=== PATIENT | male | born 1950 | race Caucasian/White ===

== ENCOUNTER 2023-12-24 12:53 | Inpatient (IN) | payer MEDICARE, OTHER, SELFPAY ==
[2023-12-24] VITALS (10 sets, daily range): BP systolic 145–176; BP diastolic 79–96; PULSE 67–97; O2SAT 97; BMI 40.7; BMI 46.6
[2023-12-24 11:12] LABS: % Basophils 0.7 % (0-2); % Eosinophils 5.2 % (0-6); % Immature Granulocytes 0.2 % (0-0.5); % Lymphocytes 28.6 % (20.5-51.1); % Monocytes 8.1 % (1.7-9.3); % Neutrophils 57.2 % (42.2-75.2); Absolute Basophils 0.1 10^3/uL (0-0.2); Absolute Eosinophils 0.5 10^3/uL (0-0.7); Absolute Lymphocytes 2.5 10^3/uL (1.2-3.4); Absolute Monocytes 0.7 10^3/uL (0.1-0.6); Absolute Neutrophils 5.1 10^3/uL (1.4-6.5); Hematocrit 43.2 % (39.0-52.0); Mean Corp Hgb Conc. 34.7 g/dL (33.0-37.0); Mean Corpuscular Hgb 31.4 pg (27.0-31.0); Mean Corpuscular Volume 90.4 fL (80.0-94.0); Mean Platelet Volume 10.6 fL (7.4-10.4); Nucleated Red Blood Cells % 0 % (-); Platelet Count 173 10^3/uL (130-400); Red Blood Cell Count 4.78 10^6/uL (4.70-6.10); Red Cell Dist. Width 13.1 % (11.5-14.5); White Blood Cell Count 8.9 10^3/uL (4.8-10.8)
[2023-12-24 11:15] LABS: Glucose - Point of Care 104 mg/dl (70-99)
[2023-12-24 11:16] LABS: APTT 26.2 Sec (23.4-35.0); INR 0.96; PT 12.6 Sec (11.4-14.6)
[2023-12-24 11:18] LABS: ALT (SGPT) 23 U/L (0-50); AST (SGOT) 27 U/L (17-59); Albumin 4.7 g/dl (3.5-5.0); Alkaline Phosphatase 92 U/L (38-126); Blood Urea Nitrogen 31 mg/dl (9-20); Calcium 9.8 mg/dl (8.4-10.2); Chloride 102 mmol/L (98-107); Estimated Creatinine Clearance 55 ml/min; Glucose 114 mg/dl (70-99); Potassium 4.3 mmol/L (3.5-5.1); Sodium 139 mmol/L (135-145); Total Bilirubin 0.5 mg/dl (0.2-1.3); Total Protein 7.4 g/dl (6.3-8.2)
--- NOTE | 2023-12-24 11:22 | ED.CVA ---
History of Present Illness
General
Chief Complaint: CVA/TIA Symptoms
Source: patient
Exam Limitations: none
Time Seen by Provider: 12/24/23 10:52
Nursing documentation reviewed up to this point in time: agreed with
Onset of Stroke Symptoms
Onset of symptoms known: Yes
Date of onset of symptoms: 12/24/23
History of Present Illness
History of Present Illness:
Patient presents to ED secondary to sudden onset of left arm weakness, difficulty ambulating, along with left upper lip weakness, noted when ambulating to the bathroom after he woke up this morning around 6:30 AM. Patient went to sleep last night
without any symptoms. Denies headache. Denies neck pain. Denies blurred vision. Denies dizziness. Denies chest pain or palpitations. Denies previous history of similar symptoms. Patient does not take any blood thinning medications currently.
Review of Systems
Review of Systems
Allergies reviewed?: Yes
All Other Systems: ROS reviewed and negative except as documented in HPI and ROS
Constitutional: Reports no symptoms
Respiratory: Reports no symptoms
Cardiac: Reports no symptoms
ABD/GI: Reports no symptoms
Musculoskeletal: Reports no symptoms
Skin: Reports no symptoms
Neurological: Reports weakness and other (ataxia)
Phy Exam
Physical Exam
Physical Exam:
Physical Exam
General: no apparent distress, not acutely ill. afebrile.
Head: nc/at. eomi
Neck: supple. no meningeal signs.
Heart: s1/s2 regular rate and rhythm, no murmur. equal radial pulses.
Lungs: no acute respiratory distress. clear bilaterally
Abdomen: normal bowel sounds. not tender
Neuro: alert and oriented x 3. LUE 4/5 motor. LLE decreased sensation. normal speech.
Skin: no rash
Psychiatric: well kept. interactive and cooperative
Extremities: no edema. no calf tenderness.
Course
Orders/Labs/Results
Orders:
Orders
12/24/23 10:47
CT Head W/o Cont STROKE ALERT Stat
Comment:
Reason For Exam: left sided weakness
12/24/23 10:50
Electrocardiogram (*1) Urgent
Reason for Study: Other
Other Reason for Exam: Possible Stroke
Bedside Glucose- Treatment ONCE
Cardiac Monitoring- Treatment ONCE
IV Insert/Care/Rem.- Treatment PRN
Vital Signs As Directed
Frequency: Other
Weight As Directed
Frequency: Once
Comment: ZERO STRETCHER SCALE FOR ACCURATE WEIGHT
O2 Therapy [RESP] Urgent
Titrate/Wean O2 to maintain O2 sat greater than (%): 93
Special Instructions: MAINTAIN CONTINUOUS O2 SATS > OR = 93%
12/24/23 10:51
EKG- Treatment ONCE
Complete Blood Count/With Diff Urgent
Comprehensive Metabolic Panel Urgent
PTT Urgent
Prothrombin Time Urgent
Troponin I Urgent
12/24/23 10:57
CT Head/Neck Ang STROKE ALERT Urgent
Comment:
Reason For Exam: Left-sided weakness
12/24/23 11:20
Aspirin 600 mg PO NOW STA
12/24/23 11:21
Clopidogrel Bisulfate [Plavix] 300 mg PO NOW STA
12/24/23 12:14
Admit/Transfer Patient As Directed
Co-Sign Provider:
Level of Care: Inpatient admission
Assign to:: Telemetry
Physician / Group: Bridger Williamson
Diagnosis: Acute CVA
Reason for Telemetry: CVA/TIA
Date to Stop Telemetry: 12/27/23
Time to Stop Telemetry: 11:00
Reason for Hospitalization: Acute CVA
Expected length of stay greater than two midnights?: Yes
ELOS- Estimated Length of Stay in days: 2
I certify the patient meets the requirements for IP care: Yes
12/24/23 12:15
PRN Pain Medication Management As Directed
May give lesser potent ordered pain med per pt: Yes
preference::
Protocol:: Medication orders for pain may be administered in a
manner that supports deferring to patient preference
when the pt is:
- Requesting an ordered lesser potent pain medication.
Least to most potent pain medications are defined
as: acetaminophen < NSAID < tramadol < opioids
(morphine, oxycodone, hydromorphone).
- Requesting a lesser dose of the same medication IF
ORDERED.
- Requesting a less intrusive route of administration
if both routes are prescribed by the provider (PO <
IV).
12/24/23 12:16
Code Status As Directed
Resuscitation Status: Full Code
12/24/23 12:58
Acetaminophen [Tylenol] 650 mg PO Q4HPRN PRN
12/24/23 14:03
Acetaminophen [Tylenol/Feverall] 650 mg RECTAL Q4HPRN PRN
12/24/23 14:03
Echo 2D MMode Color/Doppler Routine
Reason for Study: stroke/TIA
Case Management Consult ONCE
Case Management Consult: Discharge Planning
Comment: stroke/tia
NEUROLOGY CONSULT Urgent
Consulting Provider: Ced Roche
Was physician already notified: Yes
Reason for consult: stroke
MR Brain Without Contrast Routine
Comment:
Reason For Exam: stroke/TIA
Recent pill cam endoscopy?: No
Activity As Directed
Activity Level: With Assistance
NIH Stroke Scale As Directed
Directions: Per protocol
Comment: every shift and with any change in condition or mental status
Neurological Checks As Directed
Frequency: q4h
Additional Instructions:: q4h x 24h upon admission to the floor, then qshift & with any change in condition
and mental status
Patient Education As Directed
Type: Stroke education packet
Comment: provide to patient and family
Pneumatic Compression Sleeves As Directed
Type: Knee high
Swallow Screening CVA/TIA ONLY As Directed
Comment: NPO until swallowing screening completed
If patient FAILS swallow screening:: NPO, Speech Therapy consult, Aspiration Precautions
If patient PASSES swallow screening, diet:: Cholesterol Lowering
Vital Signs As Directed
Frequency: Per unit guidelines
Cpap [RESP] Routine
Patient to use own unit?: No
Set Pressure (cm H2O): 12
Ot Eval And Treat Routine
Pt Eval And Treat Routine
Activity Level: With Assistance
Speech Therapy Eval & Treat Routine
DX Deep Vein Thrombosis Video Routine
12/24/23 18:00
Tamsulosin [Flomax] 0.4 mg PO QPM
12/24/23 20:00
Pantoprazole [Protonix] 40 mg PO BID
12/24/23 22:00
Donepezil [Aricept] 5 mg PO HS
Gabapentin [Neurontin] 600 mg PO HS
12/25/23 06:00
Basic Metabolic Panel IN AM
Cardiovascular Evaluation IN AM
Complete Blood Count/No Diff IN AM
12/25/23 08:00
Aspirin Chewable [Low Strength Aspirin] 81 mg PO DAILY
Clopidogrel Bisulfate [Plavix] 75 mg PO DAILY
Dicyclomine [Bentyl] 20 mg PO DAILY
Duloxetine Delayed Release [Cymbalta Delayed Release] 30 mg PO DAILY
Rosuvastatin Calcium [Crestor] 20 mg PO DAILY
12/27/23 11:00
DC Protocol for Telemetry ONCE
12/28/23 08:00
Ergocalciferol [Drisdol (Vitamin D2)] 50,000 units PO SA@0800
Abnormal Lab Results
12/24/23 12/24/23
10:51 11:14
MCH 31.4 H pg
(27.0-31.0)
MPV 10.6 H fL
(7.4-10.4)
Absolute Monos (auto) 0.7 H 10^3/uL
(0.1-0.6)
BUN 31 H mg/dl
(9-20)
Creatinine 1.4 H mg/dL
(0.7-1.3)
Glucose 114 H mg/dl
(70-99)
POC Glucose 104 H mg/dl
(70-99)
12/24/23 10:51
12/24/23 10:51
Vital Signs
Initial and Last Documented VS:
Initial Vital Signs
Temp Pulse Resp BP Pulse Ox
98.0 F 66 20 159/85 98
12/24/23 10:35 12/24/23 10:35 12/24/23 10:35 12/24/23 10:35 12/24/23 10:35
Last Documented Vital Signs
Temp Pulse Resp BP Pulse Ox
97.4 F 63 16 172/96 94
12/24/23 14:25 12/24/23 14:25 12/24/23 14:25 12/24/23 14:25 12/24/23 14:25
MDM/Problems Addressed
MDM/Problems Addressed:
CT head: NAD. Patient is not a candidate for TNK treatment, as onset of symptoms unknown along with low NIH score. Patient evaluated by Dr. Roche, neurology, upon arrival, who recommends admission to the hospital for further evaluation treatment,
and starting aspirin and Plavix.
*Critical Care Note
Total Time (30-74mins, 75-104mins- exclusive of procedures): Not Applicable
ED Attending Note
-
Portions of this chart may have been created with voice recognition software.� Occasional wrong word or��sound alike� substitutions may have occurred due to the inherent limitations of voice recognition software.
Discharge Plan
Departure
Patient Disposition: Admit
Date of Disposition: 12/24/23
Time of Disposition: 11:28
Admit to: Telemetry
Presentation/result/management discussed w/ accepting MD/DO: Hospitalist
Discharge Problem:
Acute CVA (cerebrovascular accident)
Interventions
Interventions:
*Risk Screen - Suicide Last Done: 12/24/23 10:59
*General Assessment Last Done: 12/24/23 10:57
*Neglect/Abuse Screening Last Done: 12/24/23 10:59
ED- Fall Risk Assessment Last Done: 12/24/23 14:06
*ED COVID-19 Vaccine History Last Done: 12/24/23 10:57
*Nursing Disposition Last Done: 12/24/23 14:06
ED- Pulmonary Assessment Last Done: 12/24/23 11:00
ED- Neurological Assessment Last Done: 12/24/23 11:10
ED- Cardiac Assessment Last Done: 12/24/23 11:00
ED Swallowing Screen Last Done: 12/24/23 11:10
Discharge Date and Time
Discharge Date/Time: 12/24/23 14:00
[2023-12-24 11:29] LABS: Troponin I < 0.012 ng/ml
[2023-12-24] MEDS: PLAVIX 300 MG PO (11:31)
[2023-12-24] MEDS: ASPIRIN 600 MG PO (11:31)
[2023-12-24 11:32] LABS: Carbon Dioxide 27 mmol/L (22-30)
--- NOTE | 2023-12-24 12:19 | HPS.HSE ---
Family Physician
-
Family Physician: Dallas Valencia MD
Chief Complaint
-
Left sided weakness
History of Present Illness
Patient is a 73-year-old male with past medical history of depression, essential hypertension, hyperlipidemia, GERD, neuropathy, MITCHELL on CPAP, obesity, h/o TIA came to ER with new onset of left upper and lower extremity weakness. Patient woke up
with new onset of left upper and lower extremity weakness and was having difficulty ambulating to bathroom. Patient was sitting on a stool at 1 point and fell due to unable to keep balance, no LOC/dizziness/no head injury. Patient reported having
difficulty in swallowing as well. No change in speech.
Patient had episode of TIA years back and workup was negative at that point. Patient have some reflux/Luo's esophagus and as part of differential patient underwent cardiac stress test testing which was negative as well earlier last month.
Denies of any other issues of shortness of breath/cough/fever/palpitation/chest pain/abdomen pain/nausea/vomiting/diarrhea/dysuria.
Medical History
Past Medical History
Past Medical History: Reports Other
Additional Past Medical History:
depression, essential hypertension, hyperlipidemia, GERD, neuropathy, MITCHELL on CPAP, obesity, h/o TIA
Past Surgical History: Reports Other
Social History
Tobacco: Non-smoker
Alcohol: Occasional
Drug: None
Personal:
Living: With Family
Family History
Family History: Not pertinent
Allergies / Home Medications
Allergies reflects when Allergies were last updated in [facility].
Home Medications with original date entered in [facility]
Allergy/Medication List:
Allergies
Allergy/AdvReac Type Severity Reaction Status Date / Time
dogs Allergy Itching Uncoded 09/25/22 11:39
Home Medications
alfuzosin 10 mg tablet,extended release 24 hr 10 mg PO QPM 12/24/23
atenolol 25 mg tablet 25 mg PO DAILY 12/24/23
dicyclomine 20 mg tablet 20 mg PO DAILY 12/24/23
donepezil 5 mg tablet 5 mg PO HS 12/24/23
duloxetine 30 mg capsule,delayed release (Cymbalta) 30 mg PO DAILY 12/24/23
ergocalciferol (vitamin D2) 1,250 mcg (50,000 unit) capsule 1,250 mcg PO SA 12/24/23
gabapentin 600 mg tablet 600 mg PO HS 12/24/23
losartan 25 mg tablet 50 mg PO DAILY 12/24/23
omeprazole 40 mg capsule,delayed release 40 mg PO BID 12/24/23
rosuvastatin 20 mg tablet 20 mg PO DAILY 12/24/23
Review of Systems
-
A 12 point ROS was completed and negative except as noted: Yes
Physical Exam
Vital Signs
Vital Signs
Temp Pulse Resp BP Pulse Ox
98.0 F 59 16 149/79 97
12/24/23 10:35 12/24/23 12:00 12/24/23 12:03 12/24/23 12:00 12/24/23 12:00
Physical Exam
General: No Apparent Distress
HEENT: Atraumatic; No Oxygen
Respiratory: Clear
Cardiac: S1/S2 and Regular Rhythm; No Murmur or Rub
GI: Soft, Non Tender, Non Distended and Normal Bowel Sounds; No Organomegaly
Rectal: Deferred by Provider
Musculoskeletal: No Clubbing, No Cyanosis and No Edema
Skin: No Rash
Neuro: Awake, Alert and Oriented
Laboratory Results
-
12/24/23 10:51
12/24/23 10:51
Laboratory Results
PT 12.6 Sec (11.4-14.6) 12/24/23 10:51
INR 0.96 12/24/23 10:51
APTT 26.2 Sec (23.4-35.0) 08/20/24 10:51
Total Bilirubin 0.5 mg/dl (0.2-1.3) 12/24/23 10:51
AST 27 U/L (17-59) 12/24/23 10:51
ALT 23 U/L (0-50) 12/24/23 10:51
Alkaline Phosphatase 92 U/L (38-126) 12/24/23 10:51
Troponin I < 0.012 ng/ml 12/24/23 10:51
Data Reviewed
-
CT Scan: Image Personally Visualized and interpreted, Discussed with Patient and Discussed with Family
Lab Data: Labs Reviewed by me, Discussed with Patient and Discussed with Family
Impression/Plan
-
CT head
There are no acute intracranial abnormalities.
There is moderate diffuse cortical atrophy with moderate nonspecific white matter changes as described above.
CTA head/neck
There is no evidence of intracranial branch occlusion.
There is a small amount of partially calcific atherosclerotic plaque at the left carotid bifurcation without significant stenosis.

1. Acute CVA
Left sided weakness
-Patient woke up with left-sided upper and lower extremity weakness, dysphagia and some facial weakness
-CT head without any acute abnormality
-CTA head and neck did not show any severe plaque stenosis/clot
-Neurology evaluated patient in ER and patient got loaded with clopidogrel 300 mg and aspirin 600 mg dose
-Follow-up MRI brain ordered
-Check lipid profile/A1c
-Permissive hypertension with IV hydralazine for systolic blood pressure greater than 220/120
-PT OT and speech evaluation
-Admit to telemetry for monitoring
2. Essential HTN
-Permissive hypertension till tomorrow morning 6 AM
-Resume home dose of losartan/atenolol from tomorrow
-As needed hydralazine for systolic blood pressure above 220/120
3. MITCHELL
- night time CPAP ordered
Hyperlipidemia
GERD
neuropathy
obesity
DVT PPX - scd
Full code
Total time spent : 78 mins
I personally saw and examined the patient.
I have reviewed all diagnostic interpretations and treatment plans as written.
Time includes patient management by me, time spent at the patients bedside, time to review lab and imaging results, discussing patient care, documentation in the medical record, and time spent with the family or caregiver and discussing care plan
with RN/Consultants.
--- NOTE | 2023-12-24 12:51 | CON.NEURO4 ---
Documented by User: Maisha Liang NP 12/24/23 13:33
Consultation - Neurology 4
-
CONSULTING PHYSICIAN: Ced Roche MD
REFERRING PHYSICIAN: ER/Dr. Alvarado
DICTATED BY: KENJI Corbin
DATE/TIME OF REQUEST: 12/24/23
DATE/TIME OF CONSULTATION: 12/24/23
Reason for Consultation: Stroke Alert
History of Present Illness:
This is a 73-year-old right-handed male who has presented to the hospital with report of left-sided weakness and gait ataxia. Patient's spouse reports that he went to bed last night (12/23/23) at his baseline. This morning (12/24/23) around 8701-0596
he woke up and on ambulation to the bathroom noted that his gait was unsteady. He made it to the bathroom but then called to his for help ambulating back to back. She noted that he was veering to the left, knocking into cramer, and his left side
seemed weak. They called his PCP when the office opened and were instructed to call 911. On arrival in the ER, CT head and CTA head/neck were obtained and are negative for any acute abnormalities. NIHSS is 3 for LUE drift, slight LLE drift, and
decreased left-sided sensation. He is not a candidate for TNK/IAT due to being outside of the time window and no LVO. Patient denies any headache, dizziness, vision changes, speech/swallow difficulty, nausea, numbness, chest pain, palpitations, and
shortness of breath.
His spouse reports that in 2007 he had a 'silent stroke' with no associated symptoms. He was taking an aspirin 81mg daily for a few years but she reports it has been years since he was on that. He had an MRI brain completed in the past 1-2 years
due to cognitive changes and it reportedly demonstrated an old stroke but I do not have the report available to confirm this. She denies any history of left-sided weakness or events similar to this in the past. He is followed by Neurology Dr. Almaraz
at [place] for dementia and headaches. Per his , he has a one year history of significant short term memory issues. He was diagnosed with vascular dementia by Dr. Almaraz. He has been taking donepezil 5mg daily for several months and tolerates this
well.
Past Medical History: CVA 2008, vascular dementia, HTN, HLD, neuropathy, MITCHELL (cpap), headaches
Surgical History: Hernia repair, hydrocele repair, L TKR
Family History: Father- brain tumor.
Social History: Denies tobacco, alcohol, and illicit drug use.
Allergies: Dogs.
Home Medications: See below.
Review of Symptoms:
Patient denies any fever, headache, chest pain, shortness of breath, GI or symptoms.
�Per the HPI.�All systems are reviewed negative except above.
Physical Exam:
The patient is afebrile, abdomen is nondistended, breathing is unlabored, skin is warm and dry, no edema.
NIH Stroke Scale:
I performed the NIH stroke scale on the patient on 12/24/23 at 1100. The patient scored 3 points on the NIH stroke scale assessment, which were assigned as follows: See below.
Neurologic Examination:
The patient is awake, alert and oriented to person, place, and month (not year-baseline). He is able to follow commands and answer questions appropriately. There is no aphasia or dysarthria. On cranial nerve assessment, pupils are 3 mm bilateral,
round and reactive to light and accommodation. Visual gonzalez are full. Extraocular movements are intact. Facial sensations are intact and bilaterally symmetrical, there is no facial asymmetry. Hearing is intact bilaterally to normal conversation
volume. Tongue palate and uvula are midline. Sternocleidomastoid strengths are full bilaterally. Motor strengths are 4/5 left upper, 5/5 right upper, 5/5 right lower, and 4+/5 left lower extremities on medical research [place] scale. There is drift
in his LUE, slight drift in his LLE. No involuntary movement noted. Sensation of touch is mildly reduced on the left side. Babinski is absent bilaterally. There was no extinction noted on double simultaneous stimulation. Coordination is intact by
finger to nose bilaterally.
Lab Results: See below.
Neuro Imaging:
1. CT Head 12/24/23: There are no acute intracranial abnormalities. There is moderate diffuse cortical atrophy with moderate nonspecific white matter changes as described above.
2. CTA Head/Neck 12/24/23: There is no evidence of intracranial branch occlusion. There is a small amount of partially calcific atherosclerotic plaque at the left carotid bifurcation without significant stenosis.
Differentials for the patient's presentation include:
1. Small acute right hemisphere ischemic stroke likely producing patient's left-sided weakness and gait ataxia. Etiology likely small vessel disease. CTA negative for LVO.
2. Small old ischemic stroke, not on antiplatelet therapy.
3. Vascular dementia.
Patient has the following risk factors for their symptoms: HTN, HLD, hx stroke, MITCHELL
IV Tenecteplase/IAT candidacy: He is not a candidate for TNK/IAT due to being outside of the time window and no LVO.
Recommendations:
-Provide aspirin 600mg and Plavix 300mg x1 now. Continue DAPT with aspirin 81mg and Plavix 75mg daily for 21 days. After 21 days, discontinue Plavix and continue aspirin 81mg daily only, indefinitely.
-SBP goal <[address] Roche.
-MRI brain noncontrast pending. Lorazepam on-call for MRI due to severe claustrophobia.
-TTE pending.
-LDL goal <70. Lipid panel is pending. Continue home rosuvastatin 20mg daily.
-Goal normoglycemia, hbA1c is pending.
-Continue home donepezil.
-NIHSS and neurological checks per unit guidelines.
-Provide patient/family with a stroke education packet.
-PT/OT/ST evaluations.
-DVT prophylaxis.
-Will follow pending results.
Discussed patient care with: Dr. Roche, the patient, patient's spouse
Vital Signs and Labs
-
Vital Signs and Labs:
Vital Signs
Temp Pulse Resp BP Pulse Ox
98.0 F 59 16 149/79 97
12/24/23 10:35 12/24/23 12:00 12/24/23 13:06 12/24/23 12:00 12/24/23 12:00
Lab Results
12/24/23 10:51
12/24/23 10:51
PT 12.6 Sec (11.4-14.6) 12/24/23 10:51
INR 0.96 12/24/23 10:51
APTT 26.2 Sec (23.4-35.0) 12/24/23 10:51
Sodium 139 mmol/L (135-145) 12/24/23 10:51
Potassium 4.3 mmol/L (3.5-5.1) 12/24/23 10:51
BUN 31 mg/dl (9-20) H 12/24/23 10:51
Glucose 114 mg/dl (70-99) H 12/24/23 10:51
Calcium 9.8 mg/dl (8.4-10.2) 12/24/23 10:51
Medications
-
Active Medications
Generic Name Dose Route Start Last Admin
Trade Name Freq PRN Reason Stop Dose Admin
Acetaminophen 650 mg 12/24/23 12:58 12/24/23 13:02
Acetaminophen 325 Mg Tablet PO 01/21/24 12:57 650 mg
Q4HPRN PRN Administration
WADE, mild pain, or temp >100.4F
Home Medications
�Medication �Instructions �Recorded
alfuzosin 10 mg tablet,extended 10 mg PO QPM 12/24/23
release 24 hr
atenolol 25 mg tablet 25 mg PO DAILY 12/24/23
dicyclomine 20 mg tablet 20 mg PO DAILY 12/24/23
donepezil 5 mg tablet 5 mg PO HS 12/24/23
duloxetine 30 mg capsule,delayed 30 mg PO DAILY 12/24/23
release (Cymbalta)
ergocalciferol (vitamin D2) 1,250 1,250 mcg PO SA 12/24/23
mcg (50,000 unit) capsule
gabapentin 600 mg tablet 600 mg PO HS 12/24/23
losartan 25 mg tablet 50 mg PO DAILY 12/24/23
omeprazole 40 mg capsule,delayed 40 mg PO BID 12/24/23
release
rosuvastatin 20 mg tablet 20 mg PO DAILY 12/24/23
NIH Stroke Score
Subsequent NIH Scale
Date of Subsequent NIH Scale: 12/24/23
Time of Subsequent NIH Scale: 11:00
NIH Stroke Score
Level of Consciousness: 0 - Alert
LOC Questions: 0-Answers both correctly
LOC Commands: 0-Performs both correctly
Best Horizontal Gaze: 0-Normal
Visual Gonzalez: 0=Normal, no visual loss
Facial Palsy: 0=Normal, symmetrical
Motor - Right Arm: 0=No drift 10 seconds
Motor - Left Arm: 1=Drift < 10 seconds
Motor - Right Le-No drift 5 seconds
Motor - Left Le-Drift < 5 seconds
Limb Ataxia: 0-Absent
Sensation: 1-Mild loss
Best Language: 0-No aphasia
Dysarthria: 0-Normal
Extinction and Inattention: 0-No abnormality
Total Score:: 3
Modified [place] (mRS) Score
Modified [place] Scale (mRS): Moderately severe disability. Unable to attend to bodily needs/walk.
Score: 4
Alteplase Contraindication
Inclusion and Exclusion criteria reviewed: Yes
Reasons for NON-Tx with Thrombolytics ABSOLUTE Exclusions: Greater than 4.5 hrs from onset of sxs
IAT Contraindications: Imaging doesn't show large vessel occlusion as cause of stroke

Documented by User: Ced Roche MD 12/25/23 11:18
Consultation - Neurology 4
-
CONSULTING PHYSICIAN: Ced Roche MD
REFERRING PHYSICIAN: ER/Dr. Alvarado
DICTATED BY: KENJI Corbin
DATE/TIME OF REQUEST: 12/24/23
DATE/TIME OF CONSULTATION: 12/24/23
Reason for Consultation: Stroke Alert
History of Present Illness:
This is a 73-year-old right-handed male who has presented to the hospital with report of left-sided weakness and gait ataxia. Patient's spouse reports that he went to bed last night (12/23/23) at his baseline. This morning (12/24/23) around 8461-3323
he woke up and on ambulation to the bathroom noted that his gait was unsteady. He made it to the bathroom but then called to his for help ambulating back to back. She noted that he was veering to the left, knocking into cramer, and his left side
seemed weak. They called his PCP when the office opened and were instructed to call 911. On arrival in the ER, CT head and CTA head/neck were obtained and are negative for any acute abnormalities. NIHSS is 3 for LUE drift, slight LLE drift, and
decreased left-sided sensation. He is not a candidate for TNK/IAT due to being outside of the time window and no LVO. Patient denies any headache, dizziness, vision changes, speech/swallow difficulty, nausea, numbness, chest pain, palpitations, and
shortness of breath.
His spouse reports that in 2007 he had a 'silent stroke' with no associated symptoms. He was taking an aspirin 81mg daily for a few years but she reports it has been years since he was on that. He had an MRI brain completed in the past 1-2 years
due to cognitive changes and it reportedly demonstrated an old stroke but I do not have the report available to confirm this. She denies any history of left-sided weakness or events similar to this in the past. He is followed by Neurology Dr. Almaraz
at [place] for dementia and headaches. Per his , he has a one year history of significant short term memory issues. He was diagnosed with vascular dementia by Dr. Almaraz. He has been taking donepezil 5mg daily for several months and tolerates this
well.
Past Medical History: CVA 2008, vascular dementia, HTN, HLD, neuropathy, MITCHELL (cpap), headaches
Surgical History: Hernia repair, hydrocele repair, L TKR
Family History: Father- brain tumor.
Social History: Denies tobacco, alcohol, and illicit drug use.
Allergies: Dogs.
Home Medications: See below.
Review of Symptoms:
Patient denies any fever, headache, chest pain, shortness of breath, GI or symptoms.
�Per the HPI.�All systems are reviewed negative except above.
Physical Exam:
The patient is afebrile, abdomen is nondistended, breathing is unlabored, skin is warm and dry, no edema.
NIH Stroke Scale:
I performed the NIH stroke scale on the patient on 12/24/23 at 1100. The patient scored 3-4 points on the NIH stroke scale assessment.
Neurologic Examination:
The patient is awake, alert and oriented to person, place, and month (not year-baseline). He is able to follow commands and answer questions appropriately. There is no aphasia or dysarthria. On cranial nerve assessment, pupils are 3 mm bilateral,
round and reactive to light and accommodation. Visual gonzalez are full. Extraocular movements are intact. Facial sensations are intact and bilaterally symmetrical,
here is no facial asymmetry. Hearing is intact bilaterally to normal conversation volume. Tongue palate and uvula are midline. Sternocleidomastoid strengths are full bilaterally. Motor strengths are 4/5 left upper, 5/5 right upper, 5/5 right lower,
and 4+/5 left lower extremities on medical research [place] scale. There is drift in his LUE, slight drift in his LLE. No involuntary movement noted. Sensations were diminished/reduced on the LEFT side.
Babinski was present LEFT. There was no extinction noted on double simultaneous stimulation. Coordination is intact by finger to nose bilaterally. Patient needed assistance to sit stand. He was unable to walk
Lab Results: See below.
Neuro Imaging:
1. CT Head 12/24/23: There are no acute intracranial abnormalities. There is moderate diffuse cortical atrophy with moderate nonspecific white matter changes as described above.
2. CTA Head/Neck 12/24/23: There is no evidence of intracranial branch occlusion. There is a small amount of partially calcific atherosclerotic plaque at the left carotid bifurcation without significant stenosis.
Differentials for the patient's presentation include:
1. Small acute right hemisphere ischemic stroke likely producing patient's left-sided weakness and gait ataxia. Etiology likely small vessel disease. CTA negative for LVO.
2. Small old ischemic stroke, not on antiplatelet therapy.
3. Vascular dementia.
Patient has the following risk factors for their symptoms: HTN, HLD, hx stroke, MITCHELL
IV Tenecteplase/IAT candidacy: He is not a candidate for TNK/IAT due to waking up with left-sided weakness and arrival to emergency room 3-4 hours after waking up:: outside of the time window and no LVO.
Recommendations:
-Provide aspirin 600mg and Plavix 300mg x1 now. Continue DAPT with aspirin 81mg and Plavix 75mg daily for 21 days. After 21 days, discontinue Plavix and continue aspirin 81mg daily only, indefinitely.
-SBP goal <[address] Roche.
-MRI brain noncontrast pending. Lorazepam on-call for MRI due to severe claustrophobia.
-TTE pending.
-LDL goal <70. Lipid panel is pending. Continue home rosuvastatin 20mg daily.
-Goal normoglycemia, hbA1c is pending.
-Continue home donepezil.
-NIHSS and neurological checks per unit guidelines.
-Provide patient/family with a stroke education packet.
-PT/OT/ST evaluations.
-DVT prophylaxis.
-Will follow pending results.
Discussed patient care with: Dr. Roche, the patient, patient's spouse
Attending note:
Patient was seen and examined in the emergency room on arrival. Agree with history exam assessment and plan. Discussed case with patient's and emergency room physician
Assessment:
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
NIH Stroke Score
NIH Stroke Score
Total Score:: 3
Modified [place] (mRS) Score
Score: 4
[2023-12-24] MEDS: TYLENOL 650 MG PO ×2 (13:02→17:58)
--- NOTE | 2023-12-24 15:09 | PTCARENOTE ---
Received pt from ER via stretcher, accompanied by ER staff. Pt AAO x3, sl forgetful. PERES; has LUE/LLE weakness; denies loss of sensation. NIHSS 3 Able to transfer to bed with assist x2/walker; unsteady w/OOb activity. fall prec initiated. VSS.
Placed on telemetry;junctional rhythm. On room air- pulse ox 94%, no c/o SOB. Abd obese, soft, passed swallow eval, to start chol lowering diet. pt DTV; urinal at bedside. oriented to [facility], currently off unit for ECHO. Will continue to
monitor.
[2023-12-24] MEDS: PROTONIX 40 MG PO (20:04)
[2023-12-24] MEDS: ARICEPT 5 MG PO (21:01)
[2023-12-24] MEDS: NEURONTIN 600 MG PO (21:01)
[2023-12-24] MEDS: XANAX PO (23:22)
--- NOTE | 2023-12-24 23:24 | PTCARENOTE ---
Pt severely agitated, yelling at staff about being 'tied to so many wires' - i.e. CPAP machine, tele monitor, bed alarm. Patient took tele and CPAP, educated patient on importance of wearing both. Patient back on tele monitor, however refused to put
the CPAP back on due to the beeping. Placed pt on 4L of O2. Respiratory aware. RN INFUSION aware.
[2023-12-25] VITALS (8 sets, daily range): BP systolic 133–165; BP diastolic 64–96; PULSE 73
--- NOTE | 2023-12-25 03:30 | DOWNTIME ---
There was a [employer] Downtime on 12/25/2023 from 0100 to 12/25/2023 at 0252. Downtime documentation of patient's care, including medication administrations, has been reconciled in the electronic record per guidelines. Refer to the
patient's paper chart under the miscellaneous tab to see printed paper medication records and downtime forms.
[2023-12-25] MEDS: XANAX 1 MG PO (07:36)
--- NOTE | 2023-12-25 10:22 | PTOTSP ---
Speech Therapy Assessment
Swallowing: Oral/pharyngeal swallow deemed within functional limits without overt signs of aspiration.
Speech/Language: No gross dysarthria. Word finding difficulty and occasional paraphasic errors noted in conversation and during confrontation tasks but overall expressive and receptive language skills are within functional limits.
Signs to suggest some cognitive and memory deficits.
Recommend
1. Continue with current diet of regular solids and thin liquids.
2. Comprehensive language and cognitive assessment in next level of care. Will attempt cognitive screening while in acute care as able.
[2023-12-25] MEDS: LOW STRENGTH ASPIRIN 81 MG PO (10:24)
[2023-12-25] MEDS: CYMBALTA DELAYED RELEASE 30 MG PO (10:24)
[2023-12-25] MEDS: PLAVIX 75 MG PO (10:24)
[2023-12-25] MEDS: PROTONIX 40 MG PO ×2 (10:24→20:18)
[2023-12-25] MEDS: CRESTOR 20 MG PO (10:24)
[2023-12-25] MEDS: BENTYL 20 MG PO (10:24)
[2023-12-25 10:25] LABS: Hemoglobin 15.4 g/dL (13.0-18.0); Mean Corpuscular Hgb 31.8 pg (27.0-31.0); Mean Corpuscular Volume 90.9 fL (80.0-94.0); Mean Platelet Volume 10.6 fL (7.4-10.4); Platelet Count 181 10^3/uL (130-400); Red Blood Cell Count 4.84 10^6/uL (4.70-6.10); Red Cell Dist. Width 13.1 % (11.5-14.5); White Blood Cell Count 8.6 10^3/uL (4.8-10.8)
[2023-12-25 10:46] LABS: Blood Urea Nitrogen 26 mg/dl (9-20); Calcium 9.8 mg/dl (8.4-10.2); Carbon Dioxide 24 mmol/L (22-30); Chloride 104 mmol/L (98-107); Estimated Creatinine Clearance 69 ml/min; Glucose 115 mg/dl (70-99); HDL Cholesterol 31 mg/dl; LDL Cholesterol, Calculated 87 mg/dl; Potassium 4.1 mmol/L (3.5-5.1); Sodium 138 mmol/L (135-145); Total Cholesterol 150 mg/dl (50-199); Triglyceride 163 mg/dl (10-149); Very Low Density Lipoprotein 32 mg/dl (0-30); eGFR > 60.00
--- NOTE | 2023-12-25 11:25 | CM ---
Addendum entered by Lolis Marquez 12/25/23 12:33:
IA completed.
Lives with spouse in 2 story home.
Independent prior to admission.
Patient does not use assistive devices.
Patient does not drive.
Patient has VN in the past, not sure of agency.
PT/OT recommending acute rehab.
Patient in agreement and would like [facility].
IMM completed.
Original Note:
Patient seen bedside.
Discussed rehab with patient.
[facility]
Plan: probably [facility] tomorrow. Bed available per Josefina.
[facility]
report# [phone]
[2023-12-25] MEDS: TENORMIN 25 MG PO (12:10)
[2023-12-25] MEDS: COZAAR 50 MG PO (12:10)
--- NOTE | 2023-12-25 13:38 | CON.MD ---
Consultation - Medical
-
Referring Provider:�Dr. Bridger Williamson
Chief Complaint:�Stroke
�
History of Present Illness:�73-year-old right-handed male with PMH (as below) presented to [facility] on 12/24/2023 with left sided weakness upon waking. Had difficulty ambulating to the bathroom, fell off a stool unable to keep balance.
Initial CT/CTA of the head and neck negative for acute abnormalities. Not a candidate for TNK or thrombectomy being outside of the window. Seen by neurology and started on aspirin and Plavix for 21 days followed by aspirin lifelong.
Echocardiogram with EF 60% no cardiac source for embolus identified. 12/24 MRI of the brain with a right dent radiata acute infarction.
Spoke with hospitalist and patient. Left arm weaker today from yesterday. No bleeding noted on MRI. Patient lost taste with COVID. No worsening taste. No vision changes. Denies any swallowing or numbness/tingling concerns.
�
Past Medical History:�depression, essential hypertension, hyperlipidemia, GERD, Luo's esophagus, neuropathy, MITCHELL on CPAP, obesity, CVA 2007, vascular dementia, headaches
Procedure History:�Hernia repair, hydrocele repair, L TKR
Family History:�Father- brain tumor.
�
Social History:�
Functional Level Premorbidly:�Independent with all activities�
Functional Level Currently:�No swallowing concerns. Occasional paraphasic errors and word finding difficulty. Min assist bed mobility, min assist transfers, mod assist daily 12 feet x 2 with rolling walker. Dependent for toileting LE extremity.
�
Tobacco:�Denies�
Alcohol:�Occasional
Drug use:�Denies�
�
Lives with:�Spouse
24-hour assistance available:�Yes
Number of floors:�2
# steps to enter:�2
# steps to second floor: full flight
Potential First floor set up:�Yes
Driving:�No
Occupation:�Not walking
�
�
Allergies:�
Allergy/AdvReac Type Severity Reaction Status Date / Time
dogs Allergy Itching Uncoded 12/24/23 14:19
Review of Systems:�
Constitutional: (x) abNormal _fatigue
Eye: (x) Normal _
Ear/Nose/Throat: (x) Normal _
Respiratory: (x) Normal _
Cardiovascular: (x) Normal _
Gastrointestinal: (x) Normal _
Genitourinary: (x) Normal _
Musculoskeletal: (x) Normal _
Integumentary: (x) Normal _
Neurologic: (x) abNormal _ left arm getting weaker, worse than right arm
Psychiatric: (x) abNormal _ anxiety with left arm getting weaker, recovery
Endocrine: (x) Normal _
Hematologic/Lymphatic: (x) Normal _
Allergic/Immunologic: (x) Normal _
�
Medications:�
Active Current Visit Medication List
Category Date Time Status
Acetaminophen [Tylenol/Feverall] Med 12/24/23 14:03 Active
650 mg RECTAL Q4HPRN PRN
Acetaminophen [Tylenol] Med 12/24/23 12:58 Active
650 mg PO Q4HPRN PRN
Aspirin Chewable [Low Strength Aspirin] Med 12/25/23 08:00 Active
81 mg PO DAILY
Atenolol [Tenormin] Med 12/25/23 11:00 Active
25 mg PO DAILY
Clopidogrel Bisulfate [Plavix] Med 12/25/23 08:00 Active
75 mg PO DAILY
Dicyclomine [Bentyl] Med 12/25/23 08:00 Active
20 mg PO DAILY
Donepezil [Aricept] Med 12/24/23 22:00 Active
5 mg PO HS
Duloxetine Delayed Release [Cymbalta Delayed Release] Med 12/25/23 08:00 Active
30 mg PO DAILY
Ergocalciferol [Drisdol (Vitamin D2)] Med 12/28/23 08:00 Active
50,000 units PO SA@0800
Flush (0.9% Sodium Chloride) [Flush (Nss)] Med 12/24/23 15:00 Active
See Dose Instructions IV PER PROTOCOL
Gabapentin [Neurontin] Med 12/24/23 22:00 Active
600 mg PO HS
HydrALAZINE [Apresoline] Med 12/24/23 14:03 Active
10 mg IV Q4HPRN PRN
Losartan [Cozaar] Med 12/25/23 11:00 Active
50 mg PO DAILY
Pantoprazole [Protonix] Med 12/24/23 20:00 Active
40 mg PO BID
Rosuvastatin Calcium [Crestor] Med 12/25/23 08:00 Active
20 mg PO DAILY
�
Vitals:�
Temp Pulse Resp BP Pulse Ox
98.2 F 83 20 160/95 98
12/25/23 11:14 12/25/23 11:14 12/25/23 11:14 12/25/23 11:14 12/25/23 11:14
Height 5 ft 5 in
Actual Weight 127.063 kg
Body Mass Index (BMI) 46.6
�
Physical Exam:�
General Appearance/Observation: Well-developed, well-nourished male in no apparent distress.�
Pain/Comfort Assessment: Denies�
Mood/Affect: Appropriate, appears a little sedated (got benzo for MRI)
�
Integumentary/Operative Site:�
�� Pressure Ulcer Evaluation: absent over heels.�
�
Eyes: Conjunctiva/Lids: normal���� Pupils: pupils equal round and reactive to light and Accommodation�
Ears/Nose/Throat: oral mucosa moist,� throat clear.������������ Lips/Teeth/Gums: normal�
Neck: No muscle spasm or tenderness�
Cardiovascular: Heart: regular, no murmur�
Pulses: dorsalis pedis 2+ bilaterally�
Respiratory: Respiratory Effort/Chest Expansion: normal������� Auscultation: Clear to auscultation bilaterally�
Gastrointestinal: abdomen not tender, no distension, normal abdominal bowel sounds
Genitourinary: External catheter with clear yellow urine.
Extremities:�Edema: None�Cyanosis: None�Trophic�changes: None
�
Neurology Exam:
Orientation: Alert, Oriented to self, Time, Place�
Memory: Intact for recent medical concerns
Repetition: Intact
Comprehension: Intact
Two step command: Intact
Naming: Intact
Cranial Nerves:
�� CNII:�Pupillary light reflex: Intact����Visual Field: Intact
�� CN III, IV, : Extraocular muscles: Intact�
�� CN V:�Facial Sensation�at�Forehead: Intact,�Maxilla: Intact,�Mandible: Intact
�� CN VII:�Facial movement: left facial weakness
�� CN VIII:�Hearing: Normal
�� CN IX/X:�Speech & swallow: Dysarthria,�Position of Uvula: Midline
�� CN XI:�Shoulder shrug: decreased on left
�� CN XII:�Tongue protrusion: Midline
Sensory:
�� Light touch: Intact in bilateral upper and lower extremities, no extinction to double simultaneous stimulation.
Reflexes:
�� Biceps: 2+ right, 0 left
�� Brachioradialis: 2+ right, 0 left
�� Triceps: 2+ right, 0 left
�� Patellar: 0 bilaterally
�� Achilles: 0bilaterally
�� Babinski: Down going bilaterally
�� Clonus: None
�� Jose L: Negative bilaterally�
Cerebellar: Dysmetria/Ataxia: None�
Musculoskeletal: Motor: (Manual muscle scale 0-5)�
Muscle SA EF WE EE FF FA HF KE DF EHL PF
Right� 5 5 5 5 5 5 5 5 5 5 5
Left 1 0 1 2+ 2 1 2 5 4 4 4
�
Tone: Normal in all extremities�
Range of Motion: Passively within normal limits in all extremities�
�
Lab Results
Laboratory Data
12/25/23 09:58
12/25/23 09:58
PT 12.6 Sec (11.4-14.6) 12/24/23 10:51
INR 0.96 12/24/23 10:51
APTT 26.2 Sec (23.4-35.0) 12/24/23 10:51
Total Bilirubin 0.5 mg/dl (0.2-1.3) 12/24/23 10:51
AST 27 U/L (17-59) 12/24/23 10:51
ALT 23 U/L (0-50) 12/24/23 10:51
Alkaline Phosphatase 92 U/L (38-126) 12/24/23 10:51
Total Protein 7.4 g/dl (6.3-8.2) 12/24/23 10:51
Albumin 4.7 g/dl (3.5-5.0) 12/24/23 10:51
�
Diagnostic Results:�as per HPI�
Exams: MR Brain Without Contrast
FINDINGS:
There is a 9 mm focus of restricted effusion within the right dent radiata (series 302 image 128).
Scattered and areas of more confluent T2/FLAIR hyperintensities within the subcortical and periventricular white matter of the bilateral cerebral hemispheres which is nonspecific, however likely sequelae of mild small vessel ischemic disease. Global
parenchymal volume loss with prior right thalamic lacunar infarctions. There is blooming artifact within the bilateral thalami/posterior limbs of the internal capsule, likely prior microhemorrhage.
There is no mass or mass effect, or extra-axial fluid collection.
The ventricles are normal in size.
Flow voids of the larger intracranial vessels are present.
Paranasal sinuses and mastoid air cells are predominantly clear. There is a 1.2 cm T2 hyperintense focus of polypoid thickening within the left posterior nasal cavity which appears to extend into the left maxillary sinus.
Marrow signal pattern is within normal limits. Prior bilateral lens replacement.
IMPRESSION:
9 mm focus of restricted diffusion within the right dent radiata consistent with acute infarction.
Mild global parenchymal volume loss with sequelae moderate small vessel ischemic disease and prior right thalamic lacunar infarction. There is blooming artifact within the bilateral thalami/basal ganglia which are likely sequelae of prior
microhemorrhage.
1.2 cm focus of polypoid mucosal thickening within the posterior left nasal cavity which appears to extend into the posterior aspect of the left maxillary sinus. Possible small polyp.
�
Assessment
73y/[facility] (depression, essential hypertension, hyperlipidemia, GERD, Luo's esophagus, neuropathy, MITCHELL on CPAP, obesity, CVA 2007, vascular dementia, headaches) with a right dent radiata acute infarction causing left hemiparesis,
ataxia and word finding difficulties..
�
Plan�
PM&R�PT/OT to increase independence with ADLs, improve balance, coordination, endurance, strength, mobility, community reintegration, decreased burden of care on others and family education.�
�
CVA: Secondary prophylaxis with aspirin and Plavix for 21 days (last dose 01/13/2024) followed by aspirin lifelong, statin, and blood pressure control (SBP less than 180 and diastolic less than 100 to participate with therapy for ischemic stroke).
Continue to monitor neurologic status.�
Left nondominant hemiparesis: High risk for falls and sliding out of chair/bed. Safety reinforced.�
- Avoid using affected arm to help lift or pull patient as this will cause trauma to the shoulder.
- Monitor left leg, if more weak suggest multipodous boot.
Aphasia: speech�
Dysarthria: speech
Neuropathy: duloxetine and gabapentin
Vascular dementia: Donepezil
HTN: atenolol 25 mg daily, Losartan 50 mg daily., monitor closely�
HLD: Statin�
MITCHELL: CPAP use.�
Psych: Psychology consult.� Monitor mood, adjust duloxetine as needed.�
Skin: monitor for pressure sores/rashes/lesions.�
Pain: acetaminophen as needed.�
Bowel: Colace and Senna, PRN bisacodyl.�
Bladder: Time void, PVRs, PRN straight cath.�
GERD/Luo's esophagus: Pantoprazole�
DVT Prophylaxis: Mechanical and suggest Lovenox or heparin.�
Pulmonary: Incentive spirometry�
Morbid obesity: Continue to family life counselor patient about diet adjustments to control obesity. Body habitus and increased force to move body and extremities causes further difficulty with functional tasks.�
Safety: Continue to reinforce assistance with all transfers.�
Code Status:� Full code
Dispo�(date/plan/equipment needs): Home with family care.� Social history reviewed.�
Functional and Medical Goals:�Modified Independent with ADL�s, ambulation, transfers�
Discharge Destination:�Acute inpatient rehabilitation
�
Summary of recommendations:
-�Discharge Destination:�Acute inpatient rehabilitation�
DVT Prophylaxis: Mechanical and suggest Lovenox or heparin.�
Weakness: Monitor left leg, if more weak suggest multipodous boot.
Bowel: Colace and Senna, PRN bisacodyl.�
Bladder: Time void, PVRs, PRN straight cath.�
Thank you for allowing me to care for your patient. Please contact me with any questions or concerns.
--- NOTE | 2023-12-25 13:39 | W.PN.HOSP.TC ---
Today's Communication/Plan
-
see note
Assessment / Plan
Assessment / Plan
CT head
There are no acute intracranial abnormalities.
There is moderate diffuse cortical atrophy with moderate nonspecific white matter changes as described above.
CTA head/neck
There is no evidence of intracranial branch occlusion.
There is a small amount of partially calcific atherosclerotic plaque at the left carotid bifurcation without significant stenosis.
MRI brain
9 mm focus of restricted diffusion within the right dent radiata consistent with acute infarction.
Mild global parenchymal volume loss with sequelae moderate small vessel ischemic disease and prior right thalamic lacunar infarction. There is blooming artifact within the bilateral thalami/basal ganglia which are likely sequelae of prior
microhemorrhage.
1.2 cm focus of polypoid mucosal thickening within the posterior left nasal cavity which appears to extend into the posterior aspect of the left maxillary sinus. Possible small polyp.

1. Acute CVA
Left sided weakness
-Patient woke up with left-sided upper and lower extremity weakness, dysphagia and some facial weakness
-CT head without any acute abnormality
-CTA head and neck did not show any severe plaque stenosis/clot
-Neurology evaluated patient in ER and patient got loaded with clopidogrel 300 mg and aspirin 600 mg dose
-MRI brain showing 9 mm right dent radiata consistent with acute infarction
-A1c pending. TC 150 LDL 87
-Out of permissive hypertension window and resume back on home dose of oral atenolol/losartan
-PT recommended acute rehab
-Speech therapy recommended regular solids and thin liquids
-Patient have possibly evolving stroke with little bit worse weakness than yesterday versus pre-MRI Xanax causing some muscle weakness. Monitor overnight and if any signs of new neurological deficit will require repeat imaging
2. Essential HTN
-Resume back on atenolol/losartan
3. MITCHELL
- night time CPAP ordered, patient did not able to sleep with hospital CPAP machine, spouse will bring in home unit.
Hyperlipidemia
GERD
neuropathy
obesity
DVT PPX - scd
Full code
Total time spent : 52 mins
Anticipated Discharge: Within 24 hours
Subjective/Interval History
-
Date of Service: December 25, 2023
Patient having more difficulty with left upper and lower extremity today
Got Xanax in the morning before MRI and somewhat somnolent
No other issues reported
Objective Data
-
Labs:
Laboratory Results
12/25/23
09:58
WBC 8.6
Hgb 15.4
Hct 44.0
Plt Count 181
Sodium 138
Potassium 4.1
Chloride 104
Carbon Dioxide 24
BUN 26 H
Creatinine 1.2
Glucose 115 H
Calcium 9.8
Vital Signs:
Vital Signs
Temp Pulse Resp BP Pulse Ox
98.2 F 83 20 160/95 98
12/25/23 11:14 12/25/23 11:14 12/25/23 11:14 12/25/23 11:14 12/25/23 11:14
I&O
12/24/23 12/25/23 12/26/23
06:59 06:59 06:59
Intake Total 480 / 480
Balance 480 / 480
Review of Systems
-
Respiratory: Reports No Symptoms
Cardiac: Reports No Symptoms
Abdomen/GI: Reports No Symptoms
Physical Exam
-
General: No Apparent Distress and Comfortable
HEENT: Negative Oxygen
Respiratory: Clear to Auscultation
Cardiac: Regular Rhythm and S1/S2; Negative Murmur or Rub
GI: Soft, Nontender and Nondistended
Musculoskeletal: No Edema
Neuro: Awake, Alert, Oriented and Other (LUE/LLE motor power 3/5 )
Psych: Calm
[2023-12-25 14:37] LABS: Glycohemoglobin (HgbA1c) 5.7 % (4.0-5.6)
[2023-12-25] MEDS: ARICEPT 5 MG PO (21:38)
[2023-12-25] MEDS: TYLENOL 650 MG PO (21:38)
[2023-12-25] MEDS: NEURONTIN 600 MG PO (21:38)
[2023-12-26 03:16] VITALS: BP 146/91
[2023-12-26] MEDS: TYLENOL 650 MG PO ×2 (03:59→08:03)
[2023-12-26 07:33] VITALS: BP 137/73
[2023-12-26] MEDS: COZAAR 50 MG PO (07:53)
[2023-12-26] MEDS: CYMBALTA DELAYED RELEASE 30 MG PO (07:53)
[2023-12-26] MEDS: BENTYL 20 MG PO (07:53)
[2023-12-26] MEDS: LOW STRENGTH ASPIRIN 81 MG PO (07:53)
[2023-12-26] MEDS: CRESTOR 40 MG PO (07:53)
[2023-12-26] MEDS: PROTONIX 40 MG PO (07:53)
[2023-12-26] MEDS: PLAVIX 75 MG PO (07:54)
[2023-12-26] MEDS: TENORMIN 25 MG PO (07:54)
--- NOTE | 2023-12-26 09:59 | CM ---
Abner has been accepted for transfer to [facility] today. TT to Dr. Williamson to make him aware of same.
Plan: [facility].
Report: [phone]
--- NOTE | 2023-12-26 10:27 | W.PN.HOSP.TC ---
Today's Communication/Plan
-
d/c [facility]
Assessment / Plan
Assessment / Plan
CT head
There are no acute intracranial abnormalities.
There is moderate diffuse cortical atrophy with moderate nonspecific white matter changes as described above.
CTA head/neck
There is no evidence of intracranial branch occlusion.
There is a small amount of partially calcific atherosclerotic plaque at the left carotid bifurcation without significant stenosis.
MRI brain
9 mm focus of restricted diffusion within the right dent radiata consistent with acute infarction.
Mild global parenchymal volume loss with sequelae moderate small vessel ischemic disease and prior right thalamic lacunar infarction. There is blooming artifact within the bilateral thalami/basal ganglia which are likely sequelae of prior
microhemorrhage.
1.2 cm focus of polypoid mucosal thickening within the posterior left nasal cavity which appears to extend into the posterior aspect of the left maxillary sinus. Possible small polyp.

1. Acute CVA
Left sided weakness
-Patient woke up with left-sided upper and lower extremity weakness, dysphagia and some facial weakness
-CT head without any acute abnormality
-CTA head and neck did not show any severe plaque stenosis/clot
-Neurology evaluated patient in ER and patient got loaded with clopidogrel 300 mg and aspirin 600 mg dose
-MRI brain showing 9 mm right dent radiata consistent with acute infarction
-A1c 5.7. TC 150 LDL 87
-Out of permissive hypertension window and resume back on home dose of oral atenolol/losartan
-PT recommended acute rehab
-Speech therapy recommended regular solids and thin liquids
-Patient had repeat CT brain and no new acute abnormalities. Patient is going through evolving stroke and have more pronounced left upper and lower leg weakness and slurred speech. on exam feels same to what it was yesterday morning.
2. Essential HTN
-Resume back on atenolol/losartan
3. MITCHELL
- night time CPAP ordered, patient did not able to sleep with hospital CPAP machine, spouse will bring in home unit.
Hyperlipidemia
GERD
neuropathy
obesity
DVT PPX - scd
Full code
Medically patient cleared for discharge today to acute rehab
More than 30 minutes spent in discharge including
Final examination of the patient
Summarizing hospital stay
Instructions for continuing care to all relevant caregivers
Preparation of discharge records, prescriptions, and referral forms
Total time spent (in minutes): 39 mins
Anticipated Discharge: Today
Subjective/Interval History
-
Date of Service: December 26, 2023
seen and examined
have more pronounced left upper and lower leg weakness
speech changes present as well
Objective Data
-
Vital Signs:
Vital Signs
Temp Pulse Resp BP Pulse Ox
97.6 F 65 24 137/73 97
12/26/23 07:33 12/26/23 07:53 12/26/23 07:33 12/26/23 07:53 12/26/23 07:33
I&O
12/25/23 12/26/23 12/27/23
06:59 06:59 06:59
Intake Total 480 / 480 480 / 480
Output Total 750 / 750
Balance 480 / 480 -270 / -270
Review of Systems
-
Respiratory: Reports No Symptoms
Cardiac: Reports No Symptoms
Abdomen/GI: Reports No Symptoms
Physical Exam
-
General: No Apparent Distress and Comfortable
HEENT: Negative Oxygen
Respiratory: Clear to Auscultation
Cardiac: Regular Rhythm and S1/S2; Negative Murmur or Rub
GI: Soft, Nontender and Nondistended
Musculoskeletal: No Edema
Neuro: Awake, Alert, Oriented, Slurred Speech, Facial Droop (Left ) and Other (LUE/LLE motor power 3/5 )
Psych: Calm
--- NOTE | 2023-12-26 11:20 | W.PN.NEURO.1 ---
Today's Communication / Plan
-
Referral to physiatry for inpatient rehab
Continue aspirin Plavix
Strict blood pressure control
Neuro Assessment/Plan
Assessment
73-year-old male with history of obesity hypertension hyperlipidemia sleep apnea vascular dementia and chronic headaches who suffered a right subcortical lacunar infarct of the centrum semiovale and posterior limb of right internal capsule with left
hemiplegia
Plan
Continue aspirin and Plavix
Strict blood pressure management
CPAP
PT OT
Consider inpatient rehab
Subjective/Objective
Subjective Data
Date of Service: December 06, 2023
Patient continues to be weak on the left side. He is able to lift the left arm and form a fist. His left leg continues to be strong and is able to move it freely. No deficits on the right side
Objective Data
Vital Signs
Temp Pulse Resp BP Pulse Ox
98.2 F 83 20 160/95 98
12/25/23 11:14 12/25/23 11:14 12/25/23 11:14 12/25/23 11:14 12/25/23 11:14
Lab Results
12/25/23 09:58
12/25/23 09:58
PT 12.6 Sec (11.4-14.6) 12/24/23 10:51
INR 0.96 12/24/23 10:51
APTT 26.2 Sec (23.4-35.0) 12/24/23 10:51
Sodium 138 mmol/L (135-145) 12/25/23 09:58
Potassium 4.1 mmol/L (3.5-5.1) 12/25/23 09:58
BUN 26 mg/dl (9-20) H 12/25/23 09:58
Glucose 115 mg/dl (70-99) H 12/25/23 09:58
Calcium 9.8 mg/dl (8.4-10.2) 12/25/23 09:58
LDL Cholesterol, Calc 87 mg/dl 12/25/23 09:58
Patient Allergies
dogs Allergy (Uncoded 12/24/23 14:19)
Itching
Physical Exam
-
General: Well Developed, Well Nourished, No Apparent Distress and Comfortable
Eyes: Able to visualize OU
HEENT: Normocephalic, Atraumatic, Anicteric and Moist Mucous Membranes
Neck: No Bruits Bilaterally and Full Range of Motion
Respiratory: Clear to Auscultation
Cardiac: Regular Rhythm
GI: Normal Bowel Sounds
Skin: Unremarkable
Extremities: No Clubbing
Psych: Anxious
Extended Neurological Exam
Mood & Affect: Anxious
Attention Span & Concentration: Awake, Alert, Interactive and No Difficulty with 2 Step Request
Memory: Unremarkable, Able to Recall and Recalls Objects
Tremor: Hand Tremor Absent and Head Tremor Absent
Involuntary Movement: None
Speech: Quality Unremarkable, Quantity Unremarkable and Rate of Production Unremarkable
Cranial Nerve II: Left Eye: Pupillary Reactivity Unremarkable, Pupillary Size Unremarkable and Visual Gonzalez Grossly Intact
Cranial Nerve II: Right Eye: Pupillary Reactivity Unremarkable, Pupillary Size Unremarkable and Visual Gonzalez Grossly Intact
Cranial Nerves III, IV, : Extraocular Movement: Extraocular Movement Full in all Directions
Cranial Nerve V: Facial Sensation: Facial Sensation Unremarkable to Cold and Intact to Light Touch
Cranial Nerve VII: Facial Symmetry: Reduced (Left facial weakness(UMN))
Cranial Nerve VIII: Hearing: Unremarkable Hearing to Normal Conversational Volume
Cranial Nerves IX, X: Palate Movement: Palate Elevation Symmetric
Cranial Nerve XI: Shoulder Shrug: Unremarkable
Cranial Nerve XII: Tongue Protusion: Midline
Muscle Strength, Overall: Full Throughout
Muscle Bulk & Tone: Bulk Unremarkable and Tone Unremarkable
Pronator Drift: No Drift in Upper Extremities and No Drift in Lower Extremities
Deep Tendon Reflexes: Unremarkable Throughout
Cold Sensation: Unremarkable
Vibration Sensation: Unremarkable
Touch Sensation: Unremarkable
Coordination: [id number] Testing Unremarkable and Reaches for Objects without Difficulty
Babinski Sign: Present on Left
Gait & Station: Up from Lying with Difficulty and Unable to Assess
Modified [place] Score (MRS)
-
Modified [place] Scale (mRS): Moderately severe disability. Unable to attend to bodily needs/walk.
Score: 4
Data Reviewed
-
MRI Head: Report Reviewed and Image Reviewed
[2023-12-26 11:53] VITALS: BP 131/78
--- NOTE | 2023-12-26 18:18 | W.DCSUMMARY ---
Discharge Summary
Discharge Data
Date of Admission: 12/24/23
Date of Discharge: 12/26/23
-
Pending Results: No
Hospital Course
Discharging Physician : Dr Bridger Williamson
Disposition : To home
Primary care physician : Unknown
Principal Discharge diagnosis :
Acute left-sided stroke
Chronic Discharge diagnosis :
Essential hypertension
Obstructive sleep apnea on positive pressure therapy
Hyperlipidemia
Gastroesophageal reflux disease
Neuropathy
Obesity
Hospital Course :
Patient is a 73-year-old male with no mentioned past medical history came to ER for having new onset of left upper and lower extremity weakness which patient noticed when patient woke up in the morning. Patient also had little bit of facial droop
and slurring of words as well. Emergent CTA head and neck in ER did not show any thrombus. CT head was not showing any hemorrhagic CVA. Neurology evaluated and patient was deemed not a candidate for TNKase/IAT. Patient was loaded with dual
antiplatelet therapy and was admitted for further evaluation. Follow-up MRI brain was done next day which showed 9 mm stroke in right dent radiata. Patient symptoms where involving in head more paresis in the affected limbs following day. This
was felt to be related to evolving stroke. Later in the day patient had noted to having increased NIH scale without new neurological deficit. A follow-up CT head was done which ruled out any hemorrhagic conversion of stroke. Patient hemoglobin
A1c was borderline elevated to 5.7 prediabetic range. Cholesterol profile was reviewed and patient home dose of statin has been increased. Patient was evaluated by mobile health vehicle operator and was deemed appropriate for acute rehab at [facility].
Important imaging findings :
None
Procedure findings :
None
Discharge Plan
-
Patient Disposition: Acute Rehab Facility
Discharge Diagnosis/Procedures: Right dent radiata stroke
Condition: Fair
Diet: Low Fat and Low Sodium
Activity: As tolerated
Driving Restrictions: No driving
Bathing Restrictions: OK to Shower
Other Services: PT
Referrals:
Ced Roche MD [Active] - in four to six weeks
Dallas Valencia MD [Family Provider] - in one week
Prescriptions:
New
aspirin 81 mg Tablet,Chewable
81 mg PO DAILY Qty: 30 0RF
clopidogrel 75 mg Tablet
75 mg PO DAILY Qty: 19 0RF
Rx Instructions:
Last dose 01/13/24
acetaminophen 325 mg Tablet
650 mg PO Q4HPRN PRN (Reason: WADE, mild pain, or temp >100.4F) Qty: 30 0RF
rosuvastatin 40 mg Tablet
40 mg PO DAILY Qty: 30 0RF
Continued
atenolol 25 mg Tablet
25 mg PO DAILY
losartan 25 mg Tablet
50 mg PO DAILY
ergocalciferol (vitamin D2) 1,250 mcg (50,000 unit) Capsule
1,250 mcg PO SA
duloxetine [Cymbalta] 30 mg Capsule,Delayed Release(Dr/Ec)
30 mg PO DAILY
gabapentin 600 mg Tablet
600 mg PO HS
omeprazole 40 mg Capsule,Delayed Release(Dr/Ec)
40 mg PO BID
dicyclomine 20 mg Tablet
20 mg PO DAILY
alfuzosin 10 mg Tablet Extended Release 24 Hr
10 mg PO QPM
donepezil 5 mg Tablet
5 mg PO HS
albuterol
2 puff inhalation PRN PRN (Reason: SOB)
Discontinued
rosuvastatin [Crestor] 20 mg Tablet
20 mg PO DAILY
Discharge Orders:
Discharge Patient (As Directed); Ordered 12/26/23
Ordered By: Bridger Williamson
Discharge Date and Time
Discharge Date/Time: 12/26/23 14:14
Print Language: LITHUANIAN
== END 2023-12-26 14:14 | DRG 65 ==
LOC: 4 EAST ACU 12:53
PROVIDERS: ADMITTING PHYSICIAN Hospitalist; CONSULT PHYSICIAN Physical Medicine & Rehabilitation; CONSULT PHYSICIAN Psychiatry & Neurology Neurology; EMERGENCY PHYSICIAN Emergency Medicine; FAMILY PHYSICIAN Family Medicine
DX: I63.9 Cerebral infarction, unspecified (principal); F01.53 Vascular dementia, unspecified severity, with mood disturbance; Z68.42 Body mass index [BMI] 45.0-49.9, adult; I69.354 Hemiplegia and hemiparesis following cerebral infarction affecting left non-dominant side; I10 Essential (primary) hypertension; G47.33 Obstructive sleep apnea (adult) (pediatric); E78.5 Hyperlipidemia, unspecified; E66.9 Obesity, unspecified; K21.9 Gastro-esophageal reflux disease without esophagitis; G62.9 Polyneuropathy, unspecified; R29.703 NIHSS score 3
CPT/HCPCS: 70450; 70496; 70498; 70551; 80048; 80053; 80061; 82962; 83036; 84484; 85025; 85027; 85610; 85730; 92523; 92610; 93005; 93306; 94660; 97162; 97167; 97530; 99285; Q9967

== ENCOUNTER 2024-04-22 13:18 | Outpatient (RCR) | payer MEDICARE, OTHER, SELFPAY | END 2024-04-22 23:59 | disposition home or self-care (01) | LOC: ROT 13:18 | PROVIDERS: ATTENDING PHYSICIAN Family Medicine | DX: I69.354 Hemiplegia and hemiparesis following cerebral infarction affecting left non-dominant side (principal); I69.320 Aphasia following cerebral infarction; I69.322 Dysarthria following cerebral infarction; R29.898 Other symptoms and signs involving the musculoskeletal system; Z73.6 Limitation of activities due to disability; R41.841 Cognitive communication deficit | CPT/HCPCS: 96125; 97110; 97112; 97116; 97129; 97130; 97163; 97167; 97530; 97535 ==

== ENCOUNTER 2024-06-05 12:08 | Outpatient (RCR) | payer MEDICARE, OTHER, SELFPAY | END 2024-06-05 23:59 | disposition home or self-care (01) | LOC: ROT 12:08 | PROVIDERS: ATTENDING PHYSICIAN Family Medicine | DX: I69.354 Hemiplegia and hemiparesis following cerebral infarction affecting left non-dominant side (principal); I69.320 Aphasia following cerebral infarction; I69.322 Dysarthria following cerebral infarction; R29.898 Other symptoms and signs involving the musculoskeletal system; Z73.6 Limitation of activities due to disability; R41.841 Cognitive communication deficit; F03.A0 Unspecified dementia, mild, without behavioral disturbance, psychotic disturbance, mood disturbance, and anxiety | CPT/HCPCS: 97110; 97112; 97116; 97129; 97130; 97530; 97535 ==

== ENCOUNTER 2024-07-01 13:09 | Outpatient (RCR) | payer MEDICARE, OTHER, SELFPAY | END 2024-07-01 23:59 | disposition home or self-care (01) | LOC: ROT 13:09 | PROVIDERS: ATTENDING PHYSICIAN Family Medicine | DX: I69.354 Hemiplegia and hemiparesis following cerebral infarction affecting left non-dominant side (principal); I69.320 Aphasia following cerebral infarction; I69.322 Dysarthria following cerebral infarction; Z73.6 Limitation of activities due to disability; I69.318 Other symptoms and signs involving cognitive functions following cerebral infarction; R29.898 Other symptoms and signs involving the musculoskeletal system; F03.A0 Unspecified dementia, mild, without behavioral disturbance, psychotic disturbance, mood disturbance, and anxiety; R41.841 Cognitive communication deficit | CPT/HCPCS: 97110; 97112; 97116; 97129; 97130; 97530; 97535 ==

== ENCOUNTER 2024-07-30 16:06 | Outpatient (RCR) | payer MEDICARE, OTHER, SELFPAY | END 2024-07-30 23:59 | disposition home or self-care (01) | LOC: ROT 16:06 | PROVIDERS: ATTENDING PHYSICIAN Family Medicine | DX: I69.354 Hemiplegia and hemiparesis following cerebral infarction affecting left non-dominant side (principal); I69.320 Aphasia following cerebral infarction; I69.322 Dysarthria following cerebral infarction; R29.898 Other symptoms and signs involving the musculoskeletal system; I69.318 Other symptoms and signs involving cognitive functions following cerebral infarction; F03.A0 Unspecified dementia, mild, without behavioral disturbance, psychotic disturbance, mood disturbance, and anxiety; Z73.6 Limitation of activities due to disability; R41.841 Cognitive communication deficit | CPT/HCPCS: 97129; 97130 ==

== ENCOUNTER 2024-08-17 13:05 | Outpatient (RCR) | payer MEDICARE, OTHER, SELFPAY | END 2024-08-17 23:59 | disposition home or self-care (01) | LOC: ROT 13:05 | PROVIDERS: ATTENDING PHYSICIAN Family Medicine | DX: I69.354 Hemiplegia and hemiparesis following cerebral infarction affecting left non-dominant side (principal); I69.320 Aphasia following cerebral infarction; I69.322 Dysarthria following cerebral infarction; R29.898 Other symptoms and signs involving the musculoskeletal system; I69.318 Other symptoms and signs involving cognitive functions following cerebral infarction; F03.A0 Unspecified dementia, mild, without behavioral disturbance, psychotic disturbance, mood disturbance, and anxiety; Z73.6 Limitation of activities due to disability; R41.841 Cognitive communication deficit | CPT/HCPCS: 97129; 97130 ==

== ENCOUNTER 2024-10-09 23:05 | Emergency (ER) | payer MEDICARE, OTHER, SELFPAY ==
[2024-10-09 23:40] VITALS: BP 171/87
[2024-10-10 00:22] VITALS: BP 138/75
--- NOTE | 2024-10-10 00:23 | ED.GENMED ---
History of Present Illness
General
Chief Complaint: Throat Problem
Source: patient
Exam Limitations: none
Time Seen by Provider: 10/10/24 00:09
Nursing documentation reviewed up to this point in time: agreed with
History of Present Illness
History of Present Illness:
74 yr old male presents to the ED for evaluation. Pt was taking his pills around 9 PM and felt like they got stuck in his throat. He has been able to swallow his own secretions but was concerned about going to sleep. He does feel that symptoms
have improved since coming to the ER. No shortness of breath.
Review of Systems
Review of Systems
Allergies reviewed?: Yes
All Other Systems: ROS reviewed and negative except as documented in HPI and ROS
Constitutional: Reports no symptoms; Denies fever, fatigue or chills
EENT: Reports other (feels irritated in the back of this throat )
Skin: Reports no symptoms
Psychiatric: Reports no symptoms
Phy Exam
General Physical Exam
General Presentation: no apparent distress
General age: appears stated age
General Skin: warm and dry
General Habitus: normal
General Mental: alert
General Hydration: appears well hydrated
ENT Exam
ENT Exam: EOMI, pharynx normal and neck supple
Cardiovascular Exam
Cardiovascular Exam: regular rate/rhythm, no murmur and normal peripheral pulses
Pulmonary Exam
Pulmonary Exam: lungs clear, no respiratory distress and no cough
Neurological Exam
Neurological Exam: alert and oriented x3
Musculoskeletal Exam
Musculoskeletal Exam: full ROM
Psychiatric Exam
Psychiatric Exam: normal mood/affect
Course
Vital Signs
Initial and Last Documented VS:
Initial Vital Signs
Temp Pulse Resp BP Pulse Ox
98.3 F 59 20 171/87 96
10/09/24 23:40 10/09/24 23:40 10/09/24 23:40 10/09/24 23:40 10/09/24 23:40
Last Documented Vital Signs
Temp Pulse Resp BP Pulse Ox
98.3 F 65 18 138/75 99
10/09/24 23:40 10/10/24 00:22 10/10/24 00:22 10/10/24 00:22 10/10/24 00:22
MDM/Problems Addressed
Differential Diagnosis Includes:
Not limited to esophageal abrasion less likely foreign body
MDM/Problems Addressed:
Patient is tolerating secretions well drinking fluids likely mild abrasion to esophagus however no acute distress stable for discharge home. Will give ENT if needed.
*Critical Care Note
Total Time (30-74mins, 75-104mins- exclusive of procedures): Not Applicable
ED Attending Note
-
Portions of this chart may have been created with voice recognition software.� Occasional wrong word or��sound alike� substitutions may have occurred due to the inherent limitations of voice recognition software.
Discharge Plan
Departure
Patient Disposition: Home (Routine Discharge)
Date of Disposition: 10/10/24
Time of Disposition: 00:24
Patient with high blood pressure during this ER visit?: Yes
Condition: Fair
Covid-19: Not Applicable
Discharge Problem:
Throat irritation
Instructions: BLOOD PRESSURE
Prescriptions:
No Action
ergocalciferol (vitamin D2) 1,250 mcg (50,000 unit) Capsule
1,250 mcg PO SA
gabapentin 600 mg Tablet
600 mg PO HS
donepezil 5 mg Tablet
5 mg PO HS
aspirin 81 mg Tablet,Chewable
81 mg PO DAILY Qty: 30 0RF
trazodone 50 mg Tablet
50 mg PO HS 30 Days Qty: 30 0RF
hydrocortisone 1 % Ointment
1 applic topical Q6HPRN PRN (Reason: hemorrhoidal bleeding) 30 Days Qty: 25 0RF
tamsulosin 0.4 mg Capsule
0.4 mg PO HS 30 Days Qty: 30 0RF
dicyclomine 20 mg Tablet
20 mg PO DAILY 30 Days Qty: 30 0RF
atenolol 50 mg Tablet
50 mg PO DAILY 30 Days Qty: 30 0RF
duloxetine 30 mg Capsule,Delayed Release(Dr/Ec)
30 mg PO BID 30 Days Qty: 60 0RF
diclofenac sodium 1 % Gel
0 g topical QID 30 Days Qty: 50 0RF
losartan 50 mg Tablet
50 mg PO QPM 30 Days Qty: 30 0RF
cyanocobalamin (vitamin B-12) 1,000 mcg Tablet
1,000 mcg PO DAILY 30 Days Qty: 30 0RF
pantoprazole 40 mg Tablet,Delayed Release (Dr/Ec)
40 mg PO BID 30 Days Qty: 60 0RF
clotrimazole [Athlete's Foot (clotrimazole)] 1 % Cream
1 applic topical BID 30 Days Qty: 1 0RF
rosuvastatin 40 mg Tablet
40 mg PO DAILY 30 Days Qty: 30 0RF
multivitamin with folic acid [Tab-A-Nancy] 400 mcg Tablet
1 tab PO DAILY 30 Days Qty: 30 0RF
Referrals:
Wilfredo Hancock MD [Active, Otology]
Activity Restrictions/Additional Instructions:
It is likely that you have irritation to your esophagus/throat. Avoid irritating drinks and foods. Follow-up with ear nose and throat specialty if needed return if any worsening of symptoms.
Interventions
Interventions:
*Risk Screen - Suicide Last Done: 10/09/24 23:45
*General Assessment Last Done: 10/09/24 23:40
*Neglect/Abuse Screening Last Done: 10/09/24 23:40
*ED- Fall Risk Assessment Last Done: 10/09/24 23:40
*ED COVID-19 Vaccine History Last Done: 10/09/24 23:40
*Nursing Disposition Last Done: 10/10/24 00:33
ED-EENT Assessment Last Done: 10/10/24 00:20
ED- Pulmonary Assessment Last Done: 10/10/24 00:20
Discharge Date and Time
Discharge Date/Time: 10/10/24 00:33
Print Language: SLOVAK
== END 2024-10-10 00:33 | disposition home or self-care (01) ==
LOC: EMR 23:05
PROVIDERS: EMERGENCY PHYSICIAN Emergency Medicine; FAMILY PHYSICIAN Family Medicine
DX: R09.89 Other specified symptoms and signs involving the circulatory and respiratory systems (principal); R09.A2 Foreign body sensation, throat
CPT/HCPCS: 99282

== ENCOUNTER → 2025-02-02 13:04 | Outpatient (REF) | payer MEDICARE, OTHER, SELFPAY | LOC: RSP 13:04 | PROVIDERS: ATTENDING PHYSICIAN Internal Medicine Cardiovascular Disease; FAMILY PHYSICIAN Family Medicine; REFERRING PHYSICIAN Psychiatry & Neurology Neurology | DX: R94.2 Abnormal results of pulmonary function studies (principal); R06.09 Other forms of dyspnea | CPT/HCPCS: 94060; 94727; 94729 ==